=== PATIENT | female | born 2000 | race African-American/Black ===

== ENCOUNTER 2021-02-06 10:36 | Emergency (ER) | payer OTHER ==
[~2021-02-06] VITALS: Ht 157.5 cm; Wt 68.0 kg
[2021-02-06 10:44] VITALS: BP 150/99
[2021-02-06] MEDS ORDERED: ACETAMINOPHEN 1000 MG/ISO-OSM 100 ML IV ONE (11:30)
[2021-02-06] MEDS ORDERED: CYCLOBENZAPRINE HCL 10 MG TABLET PO ONE (11:30)
[2021-02-06] MEDS ORDERED: KETOROLAC TROMETHAMINE 30 MG/ML VIAL IVP ONE (11:30)
[2021-02-06] MEDS ORDERED: LIDOCAINE 5% TRANSDERMAL PATCH TD ONE (11:30)
== END 2021-02-06 13:11 | disposition home or self-care (01) ==
LOC: EMS 10:52
DX: M54.5 Low back pain (principal)
CPT/HCPCS: 96365; 96366; 96375; 99284; J0131; J1885; 99285